=== PATIENT | male | born 1960 | race Caucasian/White ===

== ENCOUNTER 2020-06-13 05:00 | Inpatient (IN) | payer OTHER ==
[~2020-06-13] VITALS: Ht 172.7 cm; Wt 69.9 kg
[~2020-06-13 05:00] MED LIST: ADVAIR 5001 DISK W/1; ADVAIR HFA 230/12 GM; ALBUTEROL SULFAT4 MG; DOLOGEN CAPLET1 EACH PO; FLAGYL ER750 MG; INTESTINEX1 CA1 PO; MECLIZINE HCL25 MG PO; MEDROL4 MG PO; MEDROLPACK PO; PEPCID40 MG PO; PNEU16DI2; SIMVASTATIN5 MG; SINGULAIR 10MG10 MG; SPIRIVA RESPIMAT4 G1; XOPENEX HFA15 GM; ZETIA10 MG
[2020-06-13] MEDS ORDERED: DIAZEPAM5 MG PO (09:09)
[2020-06-13] MEDS ORDERED: COLACE100 MG PO (09:09)
[2020-06-13] MEDS ORDERED: PERCOCET 5-3251 EACH PO (09:09)
[2020-06-13] MEDS ORDERED: BACTRIM DS TAB1 EACH PO (09:09)
== END 2020-06-14 13:51 | disposition home or self-care (01) | DRG 473 ==
LOC: CIR.AMB 05:00 → SURG 15:20 → O/R 15:20 → SURG 16:26
PROVIDERS: ADMIT Orthopaedic Surgery Orthopaedic Surgery of the Spine; ATTEND Orthopaedic Surgery Orthopaedic Surgery of the Spine
PROC: 07DS3ZZ Extraction of Vertebral Bone Marrow, Percutaneous Approach (ICD-10-PCS; 2020-06-13)
PROC: XRG10F3 Fusion of Cervical Vertebral Joint using Radiolucent Porous Interbody Fusion Device, Open Approach, New Technology Group 3 (ICD-10-PCS; 2020-06-13)
PROC: 0RT30ZZ Resection of Cervical Vertebral Disc, Open Approach (ICD-10-PCS; principal; 2020-06-13 07:00)
DX: M50.023 Cervical disc disorder at C6-C7 level with myelopathy (principal); M48.02 Spinal stenosis, cervical region

== ENCOUNTER 2020-07-24 13:11 | Emergency (ER) | payer OTHER ==
[~2020-07-24] VITALS: Ht 172.7 cm; Wt 68.0 kg
[~2020-07-24 13:11] MED LIST changes: +BACTRIM DS TAB1 EACH PO; +COLACE100 MG PO; +DIAZEPAM5 MG PO; +PERCOCET 5-3251 EACH PO
[2020-07-24] MEDS ORDERED: XOPENEX0.63 MG/3 (13:27)
[2020-07-24] MEDS ORDERED: SYMBICORT 16010.2 GM (13:28)
[2020-07-24] MEDS ORDERED: DICLOFENAC SOD100 GM (13:29)
[2020-07-24] MEDS ORDERED: KETO10TA2 PO (17:22)
[2020-07-24] MEDS ORDERED: SKELAXIN800 MG PO (17:22)
== END 2020-07-24 17:41 | disposition home or self-care (01) ==
LOC: ER 13:11
DX: M54.2 Cervicalgia (principal)

== ENCOUNTER 2022-08-02 06:16 | Outpatient (CLI) | payer OTHER ==
[~2022-08-02 06:16] MED LIST changes: +BACLOFEN10 MG; +CYCLOBENZAPRINE10 MG PO; +DICLOFENAC SOD100 GM; +GABAPENTIN100 M2; +KETO10TA2 PO; +LEVALBUTEROL TA15 GM; +MEDI-MECLIZINE25 MG; +MONTELUKAST SODI4 M1; +RAYOS5 MG; +SKELAGESIC PO; +SKELAXIN800 MG PO; +SYMBICORT 16010.2 GM; +XOPENEX0.63 MG/3
== END 2022-08-02 07:24 | disposition home or self-care (01) ==
LOC: LAB 06:16
PROVIDERS: ATTEND Emergency Medicine Pediatric Emergency Medicine
DX: M50.022 Cervical disc disorder at C5-C6 level with myelopathy (principal); I10 Essential (primary) hypertension; M54.59 Other low back pain; E78.9 Disorder of lipoprotein metabolism, unspecified; G40.109 Localization-related (focal) (partial) symptomatic epilepsy and epileptic syndromes with simple partial seizures, not intractable, without status epilepticus; J41.0 Simple chronic bronchitis; M50.00 Cervical disc disorder with myelopathy, unspecified cervical region; M50.03 Cervical disc disorder with myelopathy, cervicothoracic region

== ENCOUNTER 2022-11-08 06:32 | Outpatient (CLI) | payer OTHER | END 2022-11-08 06:39 | disposition home or self-care (01) | LOC: LAB 06:32 | PROVIDERS: ATTEND Emergency Medicine Pediatric Emergency Medicine | DX: M50.022 Cervical disc disorder at C5-C6 level with myelopathy (principal); M54.59 Other low back pain; E78.9 Disorder of lipoprotein metabolism, unspecified; G40.109 Localization-related (focal) (partial) symptomatic epilepsy and epileptic syndromes with simple partial seizures, not intractable, without status epilepticus; J41.0 Simple chronic bronchitis; M50.00 Cervical disc disorder with myelopathy, unspecified cervical region; M50.03 Cervical disc disorder with myelopathy, cervicothoracic region; I10 Essential (primary) hypertension; N41.0 Acute prostatitis; Z12.11 Encounter for screening for malignant neoplasm of colon ==

== ENCOUNTER → 2022-11-13 13:27 | Outpatient (CLI) | payer OTHER | END | disposition home or self-care (01) | LOC: LAB 13:27 | PROVIDERS: ATTEND Internal Medicine | DX: Z12.11 Encounter for screening for malignant neoplasm of colon (principal) ==

== ENCOUNTER 2023-03-08 07:08 | Outpatient (CLI) | payer OTHER ==
[2023-03-08 08:02] LABS: HEMATOCRIT 48.4 % (39.0-48.0); HEMOGLOBIN 16.2 g/dL (13-16.00); MEAN CORPUSCULAR HGB CONC 33.4 g/dl (32.0-36.0); RED BLOOD COUNT 5.57 M/uL (4.00-6.00)
[2023-03-08 08:06] LABS: PLATELET COUNT 125 K/uL (150-450)
[2023-03-08 08:06] LABS: URINE APPEARANCE Clear; URINE BILIRRUBIN Negative (NEGATIVE); URINE BLOOD Small; URINE COLOR Yellow; URINE GLUCOSE Negative (NEGATIVE); URINE LEUKOCYTE Negative; URINE NITRATE Negative; URINE PROTEIN Negative (NEGATIVE); URINE UROBILINOGEN 0.2 E.U./dl
[2023-03-08 08:08] LABS: URINE BACTERIA 7.5 uL (0.0-1933); URINE EPITHELIAL CELLS 2.4 uL (0.0-38.8); URINE RBC 15.3 uL (0.0-20.8); URINE WBC 6.3 uL (0.0-23.2)
[2023-03-08 08:36] LABS: CHOLESTEROL 177 mg/dL (0-200); TRIGLYCERIDES 129 mg/dL (0-150)
[2023-03-08 08:45] LABS: CALCIUM 9.4 mg/dL (8.5-10.1); CREATININE SERUM 0.95 mg/dL (0.70-1.30); GFR 79.81; POTASSIUM 4.57 mEq/L (3.5-5.1); T4 TOTAL 8.66 UG/DL (4.5-12.1); TSH 2.87 uIU/mL (0.358-3.74)
== END 2023-03-08 07:09 | disposition home or self-care (01) ==
LOC: LAB 07:08
PROVIDERS: ATTEND Internal Medicine
DX: E78.9 Disorder of lipoprotein metabolism, unspecified (principal); Z88.6 Allergy status to analgesic agent; Z88.0 Allergy status to penicillin

== ENCOUNTER 2023-06-23 08:21 | Emergency (ER) | payer OTHER ==
[~2023-06-23] VITALS: Ht 172.7 cm; Wt 71.2 kg
[2023-06-23] MEDS ORDERED: BREZTRI AEROS10.7 GM IH (08:33)
[2023-06-23] MEDS ORDERED: XOPENEX HFA15 GM IH (08:33)
[2023-06-23] MEDS ORDERED: UCERIS9 MG PO (08:34)
[2023-06-23] MEDS ORDERED: VERIPRED 220 MG/5 ML PO (08:34)
[2023-06-23] MEDS ORDERED: IPRATROPIU0.2 MG/1 M IH (08:34)
[2023-06-23] MEDS ORDERED: LYVISPAH10 MG PO (08:35)
[2023-06-23] MEDS ORDERED: DICLOFENAC SODIU5 ML OP (08:35)
[2023-06-23] MEDS ORDERED: GRALISE600 MG PO (08:35)
[2023-06-23] MEDS ORDERED: CRESTOR40 MG PO (08:36)
[2023-06-23] MEDS ORDERED: METHYLPREDNISOLONE SOD SUCC 125 MG VIAL IV STA (09:04)
[2023-06-23] MEDS ORDERED: LEVALBUTEROL HCL 1.25 MG/3 ML SOLUTION IH SCH (09:15)
[2023-06-23] MEDS ORDERED: MAGNESIUM SULFATE/D5W 100 ML IV ONE (09:15)
[2023-06-23 09:58] LABS: HEMATOCRIT 48.7 % (39.0-48.0); HEMOGLOBIN 16.2 g/dL (13-16.00); MEAN CELL VOLUME 86.8 fL (80.0-100.00); MEAN CORPUSCULAR HEMOGLOBIN 28.8 pg (27.00-32.0); MEAN CORPUSCULAR HGB CONC 33.2 g/dl (32.0-36.0); PLATELET COUNT 146 K/uL (150-450); RED BLOOD COUNT 5.61 M/uL (4.00-6.00); RED CELL DISTRIBUTION WIDTH 13.9 % (11.5-14.5)
[2023-06-23 10:20] LABS: CALCIUM 9.3 mg/dL (8.5-10.1); CREATININE SERUM 1.1 mg/dL (0.70-1.30); GFR 67.39; POTASSIUM 4.16 mEq/L (3.5-5.1)
== END 2023-06-23 15:03 | disposition home or self-care (01) ==
LOC: ER 08:21
PROVIDERS: General Practice
DX: J44.1 Chronic obstructive pulmonary disease with (acute) exacerbation (principal); B34.9 Viral infection, unspecified; Z88.0 Allergy status to penicillin; Z88.6 Allergy status to analgesic agent; I10 Essential (primary) hypertension; Z20.822 Contact with and (suspected) exposure to COVID-19
CPT/HCPCS: 36415; 71046; 93005; 94640; 96365; 99283; J2930

== ENCOUNTER 2023-08-13 06:57 | Outpatient (CLI) | payer OTHER ==
[~2023-08-13 06:57] MED LIST changes: +BREZTRI AEROS10.7 GM IH; +CRESTOR40 MG PO; +DICLOFENAC SODIU5 ML OP; +GRALISE600 MG PO; +IPRATROPIU0.2 MG/1 M IH; +LYVISPAH10 MG PO; +UCERIS9 MG PO; +VERIPRED 220 MG/5 ML PO; +XOPENEX HFA15 GM IH
[2023-08-13 08:15] LABS: HEMATOCRIT 47.6 % (39.0-48.0); HEMOGLOBIN 15.9 g/dL (13-16.00); MEAN CELL VOLUME 85.7 fL (80.0-100.00); MEAN CORPUSCULAR HEMOGLOBIN 28.6 pg (27.00-32.0); MEAN CORPUSCULAR HGB CONC 33.4 g/dl (32.0-36.0); PLATELET COUNT 144 K/uL (150-450); RED BLOOD COUNT 5.55 M/uL (4.00-6.00); RED CELL DISTRIBUTION WIDTH 14.3 % (11.5-14.5)
[2023-08-13 08:29] LABS: PT 50:50 10.7 SECONDS (9.7-11.4); PTT 50:50 31.1 SECONDS (22.4-33.0)
[2023-08-13 08:30] LABS: INR 1.01; PARTIAL THROMBOPLASTIN TIME 29.3 SECONDS (22.0-34.0); PROTHROMBIN TIME 10.6 SECONDS (9.0-11.5)
[2023-08-13 08:56] LABS: COL EPI 103 SECONDS (82-175)
[2023-08-13 09:16] LABS: % SATURACION 21.5 % (20-50); ALBUMIN 3.8 gm/dL (3.4-5.0); BILIRUBIN TOTAL 0.54 mg/dL (0.3-1.2); CREATININE SERUM 1.01 mg/dL (0.70-1.30); FERRITIN 42.3 NG/ML (26-388); GFR 74.13; GLOBULINA 3.5 G/DL (2.4-3.5); POTASSIUM 4.12 mEq/L (3.5-5.1); TOTAL PROTEIN 7.3 gm/dL (6.4-8.2)
[2023-08-13 13:36] LABS: FOLIC ACID 15.38 ng/ml (4.78-20)
[2023-08-13 14:29] LABS: MANUAL PLATELET COUNT 220
[2023-08-13 14:30] LABS: PLATELET ESTIMATE NORMAL (NORMAL)
== END 2023-08-13 07:32 | disposition home or self-care (01) ==
LOC: LAB 06:57
PROVIDERS: ATTEND Internal Medicine Hematology & Oncology
DX: D50.8 Other iron deficiency anemias (principal); R79.9 Abnormal finding of blood chemistry, unspecified; I10 Essential (primary) hypertension; R74.02 Elevation of levels of lactic acid dehydrogenase [LDH]; K76.89 Other specified diseases of liver; D68.8 Other specified coagulation defects; E56.1 Deficiency of vitamin K; D69.1 Qualitative platelet defects; D69.6 Thrombocytopenia, unspecified; M50.00 Cervical disc disorder with myelopathy, unspecified cervical region; E78.2 Mixed hyperlipidemia; J45.998 Other asthma

== ENCOUNTER 2023-12-30 07:00 | Outpatient (CLI) | payer OTHER ==
[2023-12-30 07:50] LABS: HEMATOCRIT 47.2 % (39.0-48.0); MEAN CORPUSCULAR HEMOGLOBIN 29.1 pg (27.00-32.0); MEAN CORPUSCULAR HGB CONC 33.8 g/dl (32.0-36.0); PLATELET COUNT 141 K/uL (150-450); RED BLOOD COUNT 5.49 M/uL (4.00-6.00); RED CELL DISTRIBUTION WIDTH 14.3 % (11.5-14.5)
[2023-12-30 08:45] LABS: ALBUMIN 3.8 gm/dL (3.4-5.0); BILIRUBIN TOTAL 0.63 mg/dL (0.3-1.2); CREATININE SERUM 0.82 mg/dL (0.70-1.30); GFR 94.29; GLOBULINA 3.3 G/DL (2.4-3.5); POTASSIUM 3.95 mEq/L (3.5-5.1); PROSTATIC SPECIFIC ANTIGEN 1.44 NG/ML (0.010-4.00); TOTAL PROTEIN 7.1 gm/dL (6.4-8.2); TSH 2.2 uIU/mL (0.358-3.74)
[2023-12-30 08:57] LABS: MANUAL PLATELET COUNT 210
[2023-12-30 08:59] LABS: PLATELET ESTIMATE NORMAL (NORMAL)
[2023-12-30 09:12] LABS: FOLIC ACID 14.47 ng/ml (4.78-20)
[2023-12-31 09:07] LABS: ALPHA FETO PROTEIN 5.3 ng/mL (0.0-8.4); ANTI THYROID PEROXIDASE < 9 IU/mL (0-34); CA 19-9 8 U/mL (0-35)
== END 2023-12-30 07:01 | disposition home or self-care (01) ==
LOC: LAB 07:00
PROVIDERS: ATTEND Internal Medicine Hematology & Oncology
DX: D50.8 Other iron deficiency anemias (principal); R79.9 Abnormal finding of blood chemistry, unspecified; I10 Essential (primary) hypertension; R74.02 Elevation of levels of lactic acid dehydrogenase [LDH]; K76.89 Other specified diseases of liver; D51.8 Other vitamin B12 deficiency anemias; D51.1 Vitamin B12 deficiency anemia due to selective vitamin B12 malabsorption with proteinuria; D51.0 Vitamin B12 deficiency anemia due to intrinsic factor deficiency; E03.8 Other specified hypothyroidism; E06.3 Autoimmune thyroiditis; C25.9 Malignant neoplasm of pancreas, unspecified; R97.8 Other abnormal tumor markers; R97.0 Elevated carcinoembryonic antigen [CEA]; R77.2 Abnormality of alphafetoprotein; D69.6 Thrombocytopenia, unspecified; M50.00 Cervical disc disorder with myelopathy, unspecified cervical region; E78.2 Mixed hyperlipidemia; J45.998 Other asthma

== ENCOUNTER 2023-12-30 08:10 | Outpatient (CLI) | payer OTHER | END 2023-12-30 08:15 | disposition home or self-care (01) | LOC: SONOGRAMA 08:10 | PROVIDERS: ATTEND Internal Medicine Hematology & Oncology | DX: D69.6 Thrombocytopenia, unspecified (principal); M50.00 Cervical disc disorder with myelopathy, unspecified cervical region; E78.2 Mixed hyperlipidemia; J45.998 Other asthma ==

== ENCOUNTER 2024-02-04 06:31 | Outpatient (CLI) | payer OTHER ==
[2024-02-04 07:32] LABS: HEMATOCRIT 45.1 % (39.0-48.0); HEMOGLOBIN 15.2 g/dL (13-16.00); MEAN CELL VOLUME 85.6 fL (80.0-100.00); MEAN CORPUSCULAR HEMOGLOBIN 28.8 pg (27.00-32.0); MEAN CORPUSCULAR HGB CONC 33.6 g/dl (32.0-36.0); RED BLOOD COUNT 5.27 M/uL (4.00-6.00); RED CELL DISTRIBUTION WIDTH 14.9 % (11.5-14.5)
[2024-02-04 07:34] LABS: INR 1.05; PARTIAL THROMBOPLASTIN TIME 29.1 SECONDS (22.0-34.0); PROTHROMBIN TIME 11.4 SECONDS (9.0-11.5)
[2024-02-04 07:41] LABS: PLATELET COUNT 129 K/uL (150-450)
== END 2024-02-04 06:39 | disposition home or self-care (01) ==
LOC: LAB 06:31
DX: D69.6 Thrombocytopenia, unspecified (principal)

== ENCOUNTER 2024-08-11 11:24 | Emergency (ER) | payer OTHER ==
[~2024-08-11] VITALS: Ht 172.7 cm; Wt 68.9 kg
[2024-08-11] MEDS ORDERED: ORPHENADRINE CITRATE 30 MG/ML AMPUL IM STA (14:11)
[2024-08-11] MEDS ORDERED: ORPHENADRINE CITRATE 30 MG/ML AMPUL ONE (14:19)
== END 2024-08-11 14:28 | disposition home or self-care (01) ==
LOC: ER 11:26
DX: M54.2 Cervicalgia (principal); R11.0 Nausea; M62.838 Other muscle spasm; Z88.0 Allergy status to penicillin; Z88.6 Allergy status to analgesic agent
CPT/HCPCS: 96372; 99282; J2360

== ENCOUNTER → 2024-12-29 09:49 | Outpatient (CLI) | payer OTHER ==
[2024-12-29 10:25] LABS: BASO % 0.8 % (0.1-1.2); EOS # 0.22 (0.04-0.54); EOS % 3.3 % (0.7-7.0); LYMPH # 2.56 (1.18-3.74); LYMPH % 39.0 % (19.3-53.1); MEAN PLATELET VOLUME 11.60 fl (9.4-12.4); MONO # 0.53 (0.24-0.82); MONO % 8.1 % (4.7-12.5); NEUT # 3.18 (1.56-6.13); NEUT % 48.3 % (34.0-71.1); RED CELL DISTRIBUTION WIDTH 13.9 % (11.6-14.4)
[2024-12-29 11:25] LABS: ALT/SGPT 23.0 U/L (12-78); AST/SGOT 13.0 U/L (15-37); BILIRUBIN TOTAL 0.94 mg/dL (0.3-1.2); BUN CREA RATIO 20.0 (7.0-25.0); CREATININE SERUM 0.92 mg/dL (0.70-1.30); FE 200.0 ug/dl (65-175); GFR 82.31; GLOBULINA 3.7 G/DL (2.4-3.5); GLUCOSE FASTING 96.0 mg/dL (65-100); LDH 169.0 U/L (87-241); OSMOLALITY SERUM 287.0 MOSM/KG (275-295)
[2024-12-29 13:09] LABS: FOLIC ACID > 20.00 ng/ml (4.78-20)
[2024-12-31 10:31] LABS: MANUAL PLATELET COUNT 160
== END | disposition home or self-care (01) ==
LOC: LAB 09:49
PROVIDERS: ATTEND Internal Medicine Hematology & Oncology
DX: D69.6 Thrombocytopenia, unspecified (principal); M50.00 Cervical disc disorder with myelopathy, unspecified cervical region; E78.2 Mixed hyperlipidemia; J45.998 Other asthma; D50.8 Other iron deficiency anemias; R79.9 Abnormal finding of blood chemistry, unspecified; I10 Essential (primary) hypertension; R74.02 Elevation of levels of lactic acid dehydrogenase [LDH]; K76.89 Other specified diseases of liver; D51.1 Vitamin B12 deficiency anemia due to selective vitamin B12 malabsorption with proteinuria; D51.0 Vitamin B12 deficiency anemia due to intrinsic factor deficiency

== ENCOUNTER 2025-05-15 07:48 | Emergency (ER) | payer OTHER ==
[~2025-05-15] VITALS: Ht 172.7 cm; Wt 68.9 kg
[2025-05-15] MEDS ORDERED: TYLENOL ARTHRI650 MG (07:59)
[2025-05-15] MEDS ORDERED: DEXAMETHASONE SODIUM PHOSPHATE 4 MG/ML VIAL IM STA (08:35)
[2025-05-15] MEDS ORDERED: ORPHENADRINE CITRATE 30 MG/ML AMPUL IM STA (08:35)
[2025-05-15] MEDS ORDERED: CLONIDINE HCL 0.1 MG TABLET PO STA (10:14)
[2025-05-15] MEDS ORDERED: MEDROLPACK PO (10:21)
[2025-05-15] MEDS ORDERED: NORFLEX100MG PO (10:21)
== END 2025-05-15 10:40 | disposition home or self-care (01) ==
LOC: ER 07:49
DX: M54.2 Cervicalgia (principal); Z88.0 Allergy status to penicillin; Z88.6 Allergy status to analgesic agent; J44.9 Chronic obstructive pulmonary disease, unspecified; M75.51 Bursitis of right shoulder; M75.101 Unspecified rotator cuff tear or rupture of right shoulder, not specified as traumatic
CPT/HCPCS: 72050; 73030; 96372; 99283; J1100; J2360